=== PATIENT | female | born 1935 | race Caucasian/White ===

== ENCOUNTER 2016-05-20 16:17 | Emergency (ER) | payer MEDICARE, OTHER ==
[2016-05-20] MEDS ORDERED: diphenhydrAMINE 25 MG CAPSULE PO STA (16:43)
[2016-05-20] MEDS ORDERED: CETIRIZINE 10 MG TABLET PO STA (16:43)
[2016-05-20] MEDS ORDERED: DEXAMETHASONE 10 MG/ML VIAL PO STA (16:43)
[2016-05-20] MEDS ORDERED: CETIRIZINE 10 MG TABLET ONE (16:47)
[2016-05-20] MEDS ORDERED: diphenhydrAMINE 25 MG CAPSULE PO ONE ×2 (16:47→16:48)
[2016-05-20] MEDS ORDERED: CHERRY SYRUP 10 ML UDC PO ONE (16:48)
[2016-05-20] MEDS ORDERED: DEXAMETHASONE 10 MG/ML VIAL ONE (16:48)
== END 2016-05-20 17:00 | disposition home or self-care (01) ==
DX: L50.9 Urticaria, unspecified (principal); E78.00 Pure hypercholesterolemia, unspecified; I10 Essential (primary) hypertension; E03.9 Hypothyroidism, unspecified
CPT/HCPCS: 99283; A9270

== ENCOUNTER 2016-08-31 09:43 | Outpatient (CLI) | payer MEDICARE, OTHER | END 2016-08-31 09:44 | disposition home or self-care (01) | DX: D51.0 Vitamin B12 deficiency anemia due to intrinsic factor deficiency (principal); I25.10 Atherosclerotic heart disease of native coronary artery without angina pectoris; E78.2 Mixed hyperlipidemia; E03.9 Hypothyroidism, unspecified; E55.9 Vitamin D deficiency, unspecified; Z79.899 Other long term (current) drug therapy ==

== ENCOUNTER 2016-09-13 15:12 | Outpatient (CLI) | payer MEDICARE, OTHER | END 2016-09-13 15:13 | disposition home or self-care (01) | DX: I63.9 Cerebral infarction, unspecified (principal) ==

== ENCOUNTER 2016-11-16 10:17 | Outpatient (CLI) | payer MEDICARE, OTHER ==
[2016-11-16 11:23] LABS: CALCIUM 9.1 mg/dL (8.5-10.3); POTASSIUM 4.2 mmol/L (3.5-5.0)
== END 2016-11-16 10:18 | disposition home or self-care (01) ==
LOC: LAB 10:17
PROVIDERS: ATTEND Internal Medicine Cardiovascular Disease
DX: I20.9 Angina pectoris, unspecified (principal); R06.09 Other forms of dyspnea
CPT/HCPCS: 36415; 80048

== ENCOUNTER 2017-02-07 09:34 | Outpatient (CLI) | payer MEDICARE, OTHER | END 2017-02-07 09:35 | disposition home or self-care (01) | LOC: LAB 09:34 | PROVIDERS: ATTEND Internal Medicine | DX: D64.9 Anemia, unspecified (principal) | CPT/HCPCS: 36415; 82728 ==

== ENCOUNTER 2017-07-20 09:45 | Outpatient (CLI) | payer MEDICARE, OTHER ==
[2017-07-20 10:20] LABS: ALBUMIN 4.1 g/dL (3.2-5.5); ALBUMIN/GLOBULIN RATIO 1.1 (1.0-2.2); ALKALINE PHOSPHATASE 66 IU/L (42-121); ALT ALANINE AMINOTRANSFERASE 14 IU/L (10-60); AST ASPARTATE AMINOTRANSFERASE 19 IU/L (10-42); BILIRUBIN,TOTAL 0.5 mg/dL (0.2-1.0); BUN - BLOOD UREA NITROGEN 11 mg/dL (6-20); CALCIUM 9.1 mg/dL (8.5-10.3); CARBON DIOXIDE - CO2 22 mmol/L (21-32); CHLORIDE 103 mmol/L (101-111); CHOLESTEROL 143 mg/dL; CREATININE 0.8 mg/dL (0.4-1.0); GFR - MDRD 69 (>89); GLUCOSE 117 mg/dL (70-100); HDL CHOLESTEROL 48 mg/dL; LDL CHOLESTEROL,CALCULATED 55 mg/dL; LDL/HDL RATIO 1.1 (<4.4); SODIUM 135 mmol/L (135-145); TOTAL PROTEIN 7.7 g/dL (6.7-8.2); VLDL CHOLESTEROL 40 mg/dL
== END 2017-07-20 09:46 | disposition home or self-care (01) ==
LOC: LAB 09:45
PROVIDERS: ATTEND Internal Medicine Cardiovascular Disease
DX: I25.119 Atherosclerotic heart disease of native coronary artery with unspecified angina pectoris (principal)
CPT/HCPCS: 36415; 80053; 80061; 83721

== ENCOUNTER 2017-09-10 10:55 | Outpatient (CLI) | payer MEDICARE, OTHER ==
[2017-09-10 12:56] LABS: BASOPHILS % (AUTO) 0.8 %; EOSINOPHILS # (AUTO) 0.2 10^3/uL (0.0-0.7); EOSINOPHILS % (AUTO) 3.2 %; LYMPHOCYTES # (AUTO) 1.6 10^3/uL (1.5-3.5); LYMPHOCYTES % (AUTO) 28.1 %; MEAN CORPUSCULAR HEMOGLOBIN 29.2 pg (27.0-31.0); MEAN CORPUSCULAR HGB CONC 33.3 g/dL (32.0-36.0); MEAN CORPUSCULAR VOLUME 87.6 fL (81.0-99.0); MEAN PLATELET VOLUME 8.8 fL (7.9-10.8); MONOCYTES # (AUTO) 0.5 10^3/uL (0.0-1.0); MONOCYTES % (AUTO) 9.1 %; NEUTROPHILS # (AUTO) 3.4 10^3/uL (1.5-6.6); NEUTROPHILS % (AUTO) 58.8 %; PLT - PLATELET COUNT 274 10^3/uL (130-450); RED BLOOD COUNT 3.76 10^6/uL (4.20-5.40); RED CELL DISTRIBUTION WIDTH 15.6 % (12.0-15.0); WHITE BLOOD COUNT 5.7 x10^3/uL (4.8-10.8)
[2017-09-10 13:10] LABS: ALBUMIN 4.2 g/dL (3.2-5.5); ALBUMIN/GLOBULIN RATIO 1.4 (1.0-2.2); ALKALINE PHOSPHATASE 68 IU/L (42-121); ALT ALANINE AMINOTRANSFERASE 15 IU/L (10-60); AST ASPARTATE AMINOTRANSFERASE 21 IU/L (10-42); BILIRUBIN,TOTAL 0.4 mg/dL (0.2-1.0); BUN - BLOOD UREA NITROGEN 13 mg/dL (6-20); CALCIUM 9.1 mg/dL (8.5-10.3); CARBON DIOXIDE - CO2 25 mmol/L (21-32); CHLORIDE 99 mmol/L (101-111); CHOL/HDL RATIO 3.5 (<4.4); CHOLESTEROL 195 mg/dL; CREATININE 0.8 mg/dL (0.4-1.0); GFR - MDRD 69 (>89); GLUCOSE 101 mg/dL (70-100); HDL CHOLESTEROL 56 mg/dL; LDL CHOLESTEROL,CALCULATED 94 mg/dL; LDL/HDL RATIO 1.7 (<4.4); SODIUM 132 mmol/L (135-145); TOTAL PROTEIN 7.3 g/dL (6.7-8.2); VLDL CHOLESTEROL 45 mg/dL
[2017-09-10 13:23] LABS: THYROID STIMULATING HORMONE 0.39 uIU/mL (0.34-5.60)
== END 2017-09-10 10:56 | disposition home or self-care (01) ==
LOC: LAB.R 10:55
PROVIDERS: ATTEND Internal Medicine
DX: E55.9 Vitamin D deficiency, unspecified (principal); E03.9 Hypothyroidism, unspecified; D51.0 Vitamin B12 deficiency anemia due to intrinsic factor deficiency; I25.10 Atherosclerotic heart disease of native coronary artery without angina pectoris; E78.5 Hyperlipidemia, unspecified; I10 Essential (primary) hypertension
CPT/HCPCS: 80053; 80061; 82306; 82607; 83721; 84443; 85025

== ENCOUNTER 2018-03-28 09:43 | Outpatient (CLI) | payer MEDICARE, OTHER ==
[2018-03-28 10:12] LABS: BASOPHILS # (AUTO) 0.1 10^3/uL (0.0-0.1); EOSINOPHILS # (AUTO) 0.3 10^3/uL (0.0-0.7); EOSINOPHILS % (AUTO) 4.2 %; HGB - HEMOGLOBIN 11.3 g/dL (12.0-16.0); LYMPHOCYTES # (AUTO) 1.9 10^3/uL (1.5-3.5); LYMPHOCYTES % (AUTO) 29.5 %; MEAN CORPUSCULAR HEMOGLOBIN 29.7 pg (27.0-31.0); MEAN CORPUSCULAR HGB CONC 33.9 g/dL (32.0-36.0); MEAN CORPUSCULAR VOLUME 87.8 fL (81.0-99.0); MEAN PLATELET VOLUME 8.3 fL (7.9-10.8); MONOCYTES # (AUTO) 0.8 10^3/uL (0.0-1.0); MONOCYTES % (AUTO) 11.7 %; NEUTROPHILS # (AUTO) 3.5 10^3/uL (1.5-6.6); NEUTROPHILS % (AUTO) 53.6 %; PLT - PLATELET COUNT 264 10^3/uL (130-450); RED BLOOD COUNT 3.78 10^6/uL (4.20-5.40); RED CELL DISTRIBUTION WIDTH 15.3 % (12.0-15.0); WHITE BLOOD COUNT 6.6 x10^3/uL (4.8-10.8)
[2018-03-28 10:43] LABS: CHOLESTEROL 148 mg/dL; HDL CHOLESTEROL 50 mg/dL; LDL CHOLESTEROL,CALCULATED 64 mg/dL; LDL CHOLESTEROL,DIRECT 74 mg/dL; LDL/HDL RATIO 1.3 (<4.4); VLDL CHOLESTEROL 34 mg/dL
--- NOTE | 2018-03-28 11:56 | XRAY Report ---
Reason: HYDROCODONE BITARTRATE Procedure Date: 03/28/2018 Accession Number: [id number] / [id number] Procedure: XR - Chest 2 View X-Ray CPT Code: 18522 FULL RESULT: EXAM: CHEST RADIOGRAPHY EXAM DATE: 03/28/2018 10:35 AM. CLINICAL HISTORY: Hydrocodone bitartrate. Shortness of breath for a few months. COMPARISON: CHEST 2 VIEW PA/LAT 04/05/2016 9:57 AM. TECHNIQUE: 2 views. FINDINGS: Lungs/Pleura: No new focal airspace opacities, no pleural effusion no pneumothorax. Mediastinum: Stable cardiomediastinal silhouette including tortuous calcified aorta and hiatal hernia. Other: Stable chronic elevation of the right hemidiaphragm. IMPRESSION: Stable exam with no evidence of acute airspace disease. RADIA
== END 2018-03-28 09:44 | disposition home or self-care (01) ==
LOC: LAB 09:43 → DI 09:44
PROVIDERS: ATTEND Internal Medicine Cardiovascular Disease
DX: I25.10 Atherosclerotic heart disease of native coronary artery without angina pectoris (principal); R06.09 Other forms of dyspnea
CPT/HCPCS: 36415; 71046; 80061; 83721; 83880; 85025

== ENCOUNTER 2018-05-08 08:00 | Outpatient (CLI) | payer MEDICARE, OTHER ==
[2018-05-08 11:40] LABS: BASOPHILS # (AUTO) 0.1 10^3/uL (0.0-0.1); BASOPHILS % (AUTO) 0.7 %; EOSINOPHILS # (AUTO) 0.1 10^3/uL (0.0-0.7); EOSINOPHILS % (AUTO) 0.6 %; HGB - HEMOGLOBIN 11.6 g/dL (12.0-16.0); LYMPHOCYTES # (AUTO) 1.6 10^3/uL (1.5-3.5); LYMPHOCYTES % (AUTO) 13.1 %; MEAN CORPUSCULAR HEMOGLOBIN 28.7 pg (27.0-31.0); MEAN CORPUSCULAR HGB CONC 33.1 g/dL (32.0-36.0); MEAN CORPUSCULAR VOLUME 86.7 fL (81.0-99.0); MEAN PLATELET VOLUME 9.2 fL (7.9-10.8); MONOCYTES # (AUTO) 0.8 10^3/uL (0.0-1.0); MONOCYTES % (AUTO) 6.5 %; NEUTROPHILS # (AUTO) 9.3 10^3/uL (1.5-6.6); NEUTROPHILS % (AUTO) 79.1 %; PLT - PLATELET COUNT 281 10^3/uL (130-450); RED BLOOD COUNT 4.04 10^6/uL (4.20-5.40); RED CELL DISTRIBUTION WIDTH 14.5 % (12.0-15.0); WHITE BLOOD COUNT 11.8 x10^3/uL (4.8-10.8)
[2018-05-08 12:11] LABS: ALBUMIN/GLOBULIN RATIO 1.1 (1.0-2.2); BILIRUBIN,TOTAL 0.8 mg/dL (0.2-1.0); CALCIUM 8.8 mg/dL (8.5-10.3); CREATININE 0.9 mg/dL (0.4-1.0); CRP - C-REACTIVE PROTEIN 18.1 mg/dL (0-1.0); TOTAL PROTEIN 7.8 g/dL (6.7-8.2)
== END 2018-05-08 23:59 | disposition home or self-care (01) ==
LOC: LAB.R 08:00
PROVIDERS: ATTEND Physician Assistant Medical
DX: R10.84 Generalized abdominal pain (principal)
CPT/HCPCS: 80053; 83690; 85025; 85651; 86140

== ENCOUNTER 2018-05-08 11:52 | Outpatient (CLI) | payer MEDICARE, OTHER ==
[2018-05-08] MEDS ORDERED: IOVERSOL 320 100 ML VIAL IVP ONE ×2 (12:03→16:24)
[2018-05-08] MEDS ORDERED: IOVERSOL 320 50 ML VIAL ONE (12:03)
--- NOTE | 2018-05-08 14:14 | CT Report ---
Reason: ABDOMINAL PAIN,GENERALIZED Procedure Date: 05/08/2018 Accession Number: [id number] / [id number] Procedure: CT - Abdomen/Pelvis W/ CPT Code: FULL RESULT: EXAM: CT ABDOMEN AND PELVIS EXAM DATE: 05/08/2018 01:32 PM. CLINICAL HISTORY: ABDOMINAL PAIN,GENERALIZED. COMPARISONS: None. TECHNIQUE: Routine helical CT imaging was performed through the abdomen and pelvis. IV contrast: OPTI 320 90mL. Enteric contrast: No. Reconstructions: Coronal and sagittal. In accordance with CT protocol optimization, one or more of the following dose reduction techniques were utilized for this exam: automated exposure control, adjustment of mA and/or KV based on patient size, or use of iterative reconstructive technique. FINDINGS: Lung Bases: Unremarkable. Liver: Normal. No masses. Gallbladder/Bile Ducts: Unremarkable. Spleen: Normal. Pancreas: Normal. Adrenal Glands: Normal. Kidneys: Normal. No masses or hydronephrosis. Peritoneal Cavity/Bowel: There is focal fat stranding and wall thickening in the region of a distal sigmoid diverticulum consistent with diverticulitis. There is no associated abscess or gross intraperitoneal free air. The remaining sigmoid colon also demonstrates diverticulosis. Less pronounced diverticulosis was also seen in transverse and ascending colon. No bowel obstruction or lymphadenopathy. No significant free fluid. Pelvic Organs: Excepting the diverticulitis, CT appearance of the pelvis is unremarkable status post hysterectomy except for a suspected bladder diverticulum. Vasculature: Atherosclerosis without aneurysm. Bones: No significant abnormality. Other: None. IMPRESSION: Acute distal sigmoid diverticulitis without mature abscess at this time. RADIA The above findings of diverticulitis were discussed with Demetra zavaleta by Dr. Mohit Mccray at 14:11 hrs on 05/08/18.
[2018-05-08] MEDS ORDERED: IOVERSOL 320 50 ML VIAL PO ONE (16:24)
== END 2018-05-08 11:53 | disposition home or self-care (01) ==
LOC: DI 11:52
PROVIDERS: ATTEND Physician Assistant Medical
DX: K57.32 Diverticulitis of large intestine without perforation or abscess without bleeding (principal); R10.84 Generalized abdominal pain
CPT/HCPCS: 74177; 80053; 83690; 85025; 85651; 86140; Q9967

== ENCOUNTER 2018-05-10 11:03 | Outpatient (CLI) | payer MEDICARE, OTHER ==
[2018-05-10 11:24] LABS: CREATININE 0.9 mg/dL (0.4-1.0)
== END 2018-05-10 11:04 | disposition home or self-care (01) ==
LOC: LAB 11:03
PROVIDERS: ATTEND Physician Assistant Medical
DX: E87.1 Hypo-osmolality and hyponatremia (principal)
CPT/HCPCS: 36415; 80048

== ENCOUNTER 2018-05-16 16:25 | Outpatient (CLI) | payer MEDICARE, OTHER ==
[2018-05-16 18:04] LABS: BASOPHILS # (AUTO) 0.1 10^3/uL (0.0-0.1); EOSINOPHILS # (AUTO) 0.3 10^3/uL (0.0-0.7); EOSINOPHILS % (AUTO) 4.2 %; HGB - HEMOGLOBIN 11.4 g/dL (12.0-16.0); LYMPHOCYTES # (AUTO) 1.6 10^3/uL (1.5-3.5); LYMPHOCYTES % (AUTO) 26.1 %; MEAN CORPUSCULAR HEMOGLOBIN 29.2 pg (27.0-31.0); MEAN CORPUSCULAR HGB CONC 33.4 g/dL (32.0-36.0); MEAN CORPUSCULAR VOLUME 87.5 fL (81.0-99.0); MEAN PLATELET VOLUME 8.3 fL (7.9-10.8); MONOCYTES # (AUTO) 0.8 10^3/uL (0.0-1.0); MONOCYTES % (AUTO) 12.1 %; NEUTROPHILS # (AUTO) 3.5 10^3/uL (1.5-6.6); NEUTROPHILS % (AUTO) 56.6 %; PLT - PLATELET COUNT 368 10^3/uL (130-450); RED BLOOD COUNT 3.91 10^6/uL (4.20-5.40); RED CELL DISTRIBUTION WIDTH 14.9 % (12.0-15.0); WHITE BLOOD COUNT 6.2 x10^3/uL (4.8-10.8)
[2018-05-16 19:49] LABS: ALBUMIN 3.6 g/dL (3.2-5.5); ALBUMIN/GLOBULIN RATIO 1.2 (1.0-2.2); ALKALINE PHOSPHATASE 65 IU/L (42-121); ALT ALANINE AMINOTRANSFERASE 14 IU/L (10-60); AST ASPARTATE AMINOTRANSFERASE 19 IU/L (10-42); BILIRUBIN,TOTAL < 0.2 mg/dL (0.2-1.0); BUN - BLOOD UREA NITROGEN 15 mg/dL (6-20); CALCIUM 8.3 mg/dL (8.5-10.3); CARBON DIOXIDE - CO2 22 mmol/L (21-32); CHLORIDE 100 mmol/L (101-111); CREATININE 0.9 mg/dL (0.4-1.0); GFR - MDRD 60 (>89); GLUCOSE 111 mg/dL (70-100); SODIUM 130 mmol/L (135-145); TOTAL PROTEIN 6.7 g/dL (6.7-8.2)
== END 2018-05-16 23:59 | disposition home or self-care (01) ==
LOC: LAB.R 16:25
PROVIDERS: ATTEND Physician Assistant Medical
DX: K57.92 Diverticulitis of intestine, part unspecified, without perforation or abscess without bleeding (principal); E87.1 Hypo-osmolality and hyponatremia
CPT/HCPCS: 80053; 81599; 85025; 85651; 86140

== ENCOUNTER 2018-07-08 08:58 | Emergency (ER) | payer MEDICARE, OTHER ==
[2018-07-08] MEDS ORDERED: TETANUS/DIPHTHERIA/PERTUSSIS 0.5 ML SYRINGE IM ONE (09:08)
--- NOTE | 2018-07-08 09:17 | ED Physician Documentation ---
PD HPI Fall - Stated complaint Stated Complaint: GLF/HEAD INJURY - History obtained from History obtained from: Patient, Family - History of Present Illness Mechanism of injury: Tripped Fall distance: Other (standing) Where injury occurred: Street Timing - onset: How many minutes ago (20) Injury(ies) location: Head, Face, Right Lower Extremity (knee) Pain level max: 4 Pain level now: 3 Quality of pain: Pain, Aching, Dull Associated symptoms: No: LOC, AMS, Amnesia, Ear drainage, Nasal drainage, Neck pain, Weakness, Paresthesias, Dyspnea, Nausea / vomiting Symptoms improve with: Rest Worsens with: Movement, Palpation Contributing factors: Anticoagulated (plavix) Recently seen: Not recently seen Review of Systems Constitutional: denies: Fever, Chills Nose: denies: Rhinorrhea / runny nose, Congestion Throat: denies: Sore throat Cardiac: denies: Chest pain / pressure, Palpitations Respiratory: denies: Cough GI: denies: Nausea, Vomiting : denies: Dysuria Skin: denies: Rash Musculoskeletal: denies: Neck pain, Back pain Neurologic: denies: Syncope, Confused PD PAST MEDICAL HISTORY - Past Medical History Cardiovascular: Hypertension, High cholesterol, Angina, Other Respiratory: None Endocrine/Autoimmune: HyPOthyroidism GI: GERD, C.difficile : None HEENT: Chronic vision loss, Chronic hearing loss Psych: Depression Musculoskeletal: Other Derm: None - Past Surgical History General: Appendectomy, Colonoscopy Ortho: Other /LAY OUT FORMER: Hysterectomy Cardiovascular: Coronary stent - Present Medications Home Medications: Ambulatory Orders Medication Instructions Recorded Confirmed Atorvastatin Calcium [Lipitor] 40 mg PO HS 09/01/13 07/08/18 Clopidogrel [Plavix] 75 mg PO DAILY 09/01/13 07/08/18 Isosorbide Mononitrate ER [Imdur] 90 mg PO DAILY 09/01/13 07/08/18 Levothyroxine Sodium [Synthroid] 75 mcg PO DAILY 09/01/13 07/08/18 Lisinopril 5 mg PO QPM 09/01/13 07/08/18 Metoprolol Tartrate [Lopressor] 25 mg PO DAILY 09/01/13 07/08/18 Nitroglycerin [Nitrostat] 0.4 mg SL ONCE 09/01/13 07/08/18 amLODIPine [Norvasc] 5 mg PO DAILY 09/01/13 07/08/18 raNITIdine [Zantac] 150 mg PO BID 09/01/13 07/08/18 - Allergies Allergies/Adverse Reactions: Allergies Allergy/AdvReac Type Severity Reaction Status Date / Time acetaminophen [From Vicodin] Allergy Mild Hives Verified 07/08/18 09:17 hydrocodone bitartrate * Allergy Mild Hives Verified 07/08/18 09:17 [From Vicodin] - Social History Does the pt smoke?: No Smoking Status: Never smoker Does the pt drink ETOH?: Yes Does the pt have substance abuse?: No - Immunizations Immunizations are current?: Yes PD ED PE NORMAL - Vitals Vital signs reviewed: Yes - General General: Alert and oriented X 3, No acute distress, Well developed/nourished - HEENT HEENT: PERRL, EOMI, Moist mucous membranes, Other (Abrasion and hematoma to the left frontal area.) - Neck Neck: Supple, no meningeal sign - Cardiac Cardiac: RRR, Strong equal pulses - Respiratory Respiratory: No respiratory distress, Clear bilaterally - Abdomen Abdomen: Soft, Non tender, Non distended - Back Back: No spinal TTP - Derm Derm: Warm and dry - Extremities Extremities: Other (Mild bruising and swelling to the anterior aspect of the right knee. No bony tenderness. Full range of motion.) - Neuro Neuro: Alert and oriented X 3 - Psych Psych: Normal mood, Normal affect Results - Vitals Vitals: Vital Signs - 24 hr 07/08/18 08:58 Temperature 36.9 C Heart Rate 67 Respiratory 16 Rate Blood Pressure 181/82 H O2 Saturation 99 Oxygen O2 Source Room air - Rads (name of study) head Ct Radiology: Prelim report reviewed, EMP read contemporaneously, See rad report (No acute intracranial abnormality) Right knee x-ray Radiology: Prelim report reviewed, EMP read contemporaneously, See rad report (No acute bony abnormality) PD MEDICAL DECISION MAKING - ED course Complexity details: reviewed results, re-evaluated patient, considered differential, d/w patient, d/w family ED course: 83-year-old female presents to the emergency department after a ground-level fall. No acute findings on head CT or x-ray of the knee. Ambulating well. Does have a bruise on the right elbow and left wrist. There is no tenderness associated with these bruises. Full range of motion present of the left wrist and right elbow without pain. Neurovascularly intact. Patient and family counseled regarding signs and symptoms for which I believe and urgent re-ev aluation would be necessary. Patient with good understanding of and agreement to plan and is comfortable going home at this time This document was made in part using voice recognition software. While efforts are made to proofread this document, sound alike and grammatical errors may occur. Departure - Departure Disposition: 01 Home, Self Care Clinical Impression: Head injury Qualifiers: Encounter type: initial encounter Qualified Code(s): S09.90XA - Unspecified injury of head, initial encounter Contusion of knee, right Qualifiers: Encounter type: initial encounter Qualified Code(s): S80.01XA - Contusion of right knee, initial encounter Condition: Good Instructions: ED Head Injury Closed Follow-Up: Isidoro Day MD [Primary Care Provider] - Comments: Your head CT and x-rays do not show anything acute today. Return if you worsen. You can use Motrin or Tylenol as needed for pain.
--- NOTE | 2018-07-08 09:34 | CT Report ---
Reason: fall, head injury, pt takes plavix Procedure Date: 07/08/2018 Accession Number: [id number] / [id number] Procedure: CT - HEAD WO CPT Code: FULL RESULT: EXAM: CT HEAD EXAM DATE: 07/08/2018 09:24 AM. CLINICAL HISTORY: Fall, head injury, pt takes plavix. COMPARISON: None. TECHNIQUE: Multiaxial CT images were obtained from the foramen magnum to the vertex. Reformats: Sagittal and coronal. IV contrast: None. In accordance with CT protocol optimization, one or more of the following dose reduction techniques were utilized for this exam: automated exposure control, adjustment of mA and/or KV based on patient size, or use of iterative reconstructive technique. FINDINGS: Parenchyma: No intraparenchymal hemorrhage. No evidence of mass, midline shift, or CT findings of acute infarction. Jeffers-white differentiation is distinct. Diffuse chronic microangiopathic white matter changes are evident. Extraaxial Spaces: Normal for age. No subdural or epidural collections identified. Ventricles: The ventricles and cortical sulci are enlarged, consistent with age-related tissue loss. Sinuses and orbits: Occluded left mastoid tip Imaged paranasal sinuses, orbits, and mastoids show no significant abnormality. Bones: No evidence of fracture or calvarial defect. Other: None. IMPRESSION: Generalized age-related cortical atrophic changes without evidence of acute intracranial abnormality. RADIA
[2018-07-08] MEDS ORDERED: ACETAMINOPHEN 325 MG TABLET PO STA (09:55)
--- NOTE | 2018-07-08 10:04 | XRAY Report ---
Reason: fall, R knee injury Procedure Date: 07/08/2018 Accession Number: [id number] / [id number] Procedure: XR - Knee 4 View RT CPT Code: FULL RESULT: EXAM: RIGHT KNEE RADIOGRAPHY EXAM DATE: 07/08/2018 09:33 AM. CLINICAL HISTORY: Fall, R knee injury. COMPARISON: KNEE 3 VIEW RT 05/05/2015 9:59 AM. TECHNIQUE: 4 views. FINDINGS: Bones: Medial joint space osteophyte, subchondral sclerosis mild joint space narrowing. Spurring of the tibial spines. Joints: Normal. No effusion. No subluxations. Soft Tissues: Soft tissue swelling. Vascular calcifications IMPRESSION: Mild to moderate DJD RADIA
[2018-07-08] MEDS ORDERED: BACITRACIN OINT TOP ONE (10:25)
--- NOTE | 2018-07-08 10:59 | XRAY Report ---
Reason: fall, wrist pain Procedure Date: 07/08/2018 Accession Number: [id number] / [id number] Procedure: XR - Wrist 4 View LT CPT Code: FULL RESULT: EXAM: LEFT WRIST RADIOGRAPHY EXAM DATE: 07/08/2018 10:49 AM. CLINICAL HISTORY: Fall, wrist pain. COMPARISON: None. TECHNIQUE: 4 views. FINDINGS: Bones: Osteopenia. Possible dorsal distal radial fracture Joints: DJD first metacarpal carpal joint No subluxations. Soft Tissues: Clothing artifact No soft tissue swelling. IMPRESSION: Possible dorsal distal radial buckle fracture RADIA
[2018-07-08] MEDS ORDERED: traMADol 50 MG TABLET PO STA (11:24)
--- NOTE | 2018-07-08 11:27 | ED Physician Documentation ---
ED Addendum - Addendum Addendum: Patient complained of increased L wrist pain, xray ordered. Possible distal radius buckle fracture, not really tender at this area, doubt that it is real, but will place in a velcro splint. NVI. Patient and family also request tramadol for home Departure - Departure Disposition: 01 Home, Self Care Clinical Impression: Head injury Qualifiers: Encounter type: initial encounter Qualified Code(s): S09.90XA - Unspecified injury of head, initial encounter Contusion of knee, right Qualifiers: Encounter type: initial encounter Qualified Code(s): S80.01XA - Contusion of right knee, initial encounter Buckle fracture of left wrist Qualifiers: Encounter type: initial encounter Qualified Code(s): S62.102A - Fracture of unspecified carpal bone, left wrist, initial encounter for closed fracture Condition: Good Instructions: ED Head Injury Closed Follow-Up: Isidoro Day MD [Primary Care Provider] - Within 1 week Prescriptions: Tramadol HCl 50 - 100 mg PO Q6H PRN #14 tablet PRN Reason: pain Comments: Your head CT and x-rays do not show anything acute today other than a possible buckle fracture of the dorsal distal radius. Wear the splint until released by her doctor. Return if you worsen. You can use Motrin or Tylenol as needed for pain.
[2018-07-08 11:39] VITALS: BP 142/63
== END 2018-07-08 11:40 | disposition home or self-care (01) ==
LOC: ED 08:58
DX: S52.592A Other fractures of lower end of left radius, initial encounter for closed fracture (principal); S09.90XA Unspecified injury of head, initial encounter; S00.81XA Abrasion of other part of head, initial encounter; S00.83XA Contusion of other part of head, initial encounter; S80.01XA Contusion of right knee, initial encounter; S50.01XA Contusion of right elbow, initial encounter; S60.212A Contusion of left wrist, initial encounter; W01.0XXA Fall on same level from slipping, tripping and stumbling without subsequent striking against object, initial encounter; Y92.410 Unspecified street and highway as the place of occurrence of the external cause; Z23 Encounter for immunization; I10 Essential (primary) hypertension; Z79.02 Long term (current) use of antithrombotics/antiplatelets
CPT/HCPCS: 70450; 73110; 73564; 90471; 90715; 99283; A9270

== ENCOUNTER 2018-12-04 10:21 | Outpatient (CLI) | payer MEDICARE, OTHER ==
[2018-12-04 10:46] LABS: BASOPHILS # (AUTO) 0.1 10^3/uL (0.0-0.1); BASOPHILS % (AUTO) 0.8 %; EOSINOPHILS # (AUTO) 0.3 10^3/uL (0.0-0.7); EOSINOPHILS % (AUTO) 4.2 %; HGB - HEMOGLOBIN 11.3 g/dL (12.0-16.0); LYMPHOCYTES # (AUTO) 1.6 10^3/uL (1.5-3.5); LYMPHOCYTES % (AUTO) 25.2 %; MEAN CORPUSCULAR HEMOGLOBIN 28.5 pg (27.0-31.0); MEAN CORPUSCULAR HGB CONC 30.4 g/dL (32.0-36.0); MEAN CORPUSCULAR VOLUME 93.9 fL (81.0-99.0); MEAN PLATELET VOLUME 10.3 fL (7.9-10.8); MONOCYTES # (AUTO) 0.7 10^3/uL (0.0-1.0); NEUTROPHILS # (AUTO) 3.5 10^3/uL (1.5-6.6); NEUTROPHILS % (AUTO) 57.6 %; PLT - PLATELET COUNT 263 10^3/uL (130-450); RED BLOOD COUNT 3.96 10^6/uL (4.20-5.40); RED CELL DISTRIBUTION WIDTH 13.7 % (12.0-15.0); WHITE BLOOD COUNT 6.2 x10^3/uL (4.8-10.8)
[2018-12-04 11:03] LABS: ALBUMIN 4.1 g/dL (3.2-5.5); ALBUMIN/GLOBULIN RATIO 1.2 (1.0-2.2); ALKALINE PHOSPHATASE 73 IU/L (42-121); ALT ALANINE AMINOTRANSFERASE 14 IU/L (10-60); AST ASPARTATE AMINOTRANSFERASE 19 IU/L (10-42); BILIRUBIN,TOTAL 0.7 mg/dL (0.2-1.0); BUN - BLOOD UREA NITROGEN 17 mg/dL (6-20); CALCIUM 9.1 mg/dL (8.5-10.3); CARBON DIOXIDE - CO2 23 mmol/L (21-32); CHLORIDE 99 mmol/L (101-111); CHOL/HDL RATIO 3.6 (<4.4); CHOLESTEROL 171 mg/dL; CREATININE 0.9 mg/dL (0.4-1.0); GFR - MDRD 60 (>89); GLUCOSE 120 mg/dL (70-100); HDL CHOLESTEROL 48 mg/dL; LDL CHOLESTEROL,CALCULATED 79 mg/dL; LDL/HDL RATIO 1.6 (<4.4); SODIUM 132 mmol/L (135-145); TOTAL PROTEIN 7.5 g/dL (6.7-8.2); VLDL CHOLESTEROL 44 mg/dL
[2018-12-04 11:35] LABS: THYROID STIMULATING HORMONE 0.32 uIU/mL (0.34-5.60)
[2018-12-04 11:37] LABS: FREE T4 (FREE THYROXINE) 1.19 ng/dL (0.58-1.64)
== END 2018-12-04 10:22 | disposition home or self-care (01) ==
LOC: LAB 10:21
PROVIDERS: ATTEND Family Medicine
DX: I10 Essential (primary) hypertension (principal); I25.119 Atherosclerotic heart disease of native coronary artery with unspecified angina pectoris; E03.9 Hypothyroidism, unspecified; D51.0 Vitamin B12 deficiency anemia due to intrinsic factor deficiency
CPT/HCPCS: 36415; 80053; 80061; 83721; 84439; 84443; 84481; 85025

== ENCOUNTER 2018-12-30 08:58 | Outpatient (CLI) | payer MEDICARE, OTHER ==
[2018-12-30] MEDS ORDERED: ALBUTEROL NEB 2.5 MG/3 ML INH SCH (09:01)
== END 2018-12-30 08:59 | disposition home or self-care (01) ==
LOC: RT 08:58
PROVIDERS: ATTEND Family Medicine
DX: I25.119 Atherosclerotic heart disease of native coronary artery with unspecified angina pectoris (principal); J44.9 Chronic obstructive pulmonary disease, unspecified
CPT/HCPCS: 94060

== ENCOUNTER 2019-05-22 09:32 | Outpatient (CLI) | payer MEDICARE, OTHER ==
--- NOTE | 2019-05-22 12:01 | MRI Report ---
Reason: MASTOIDITIS AND RELATED CONDITIONS LT EAR, NECK PX Procedure Date: 05/22/2019 Accession Number: [id number] / [id number] Procedure: MRI - Brain W/O CPT Code: Final Report FULL RESULT: EXAM: MRI BRAIN WITHOUT CONTRAST EXAM DATE: 05/22/2019 11:05 AM. CLINICAL HISTORY: MASTOIDITIS AND RELATED CONDITIONS LT EAR, NECK PX. COMPARISON: HEAD W/O 07/08/2018 9:20 AM. TECHNIQUE: Multiplanar, multisequence T1-weighted and fluid-sensitive MR sequences of the brain were performed. Sequences optimized for routine brain and IAC evaluation. Other: None. IV Contrast: None. FINDINGS: Brain Volume: Normal for age. Parenchyma/Dura: No mass, acute infarct or hemorrhage. There is semi-confluent areas of increased T2 signal involving the white matter of bilateral cerebral hemispheres. Ventricles/Cisterns: No hydrocephalus. No abnormal extra-axial fluid collection or hemorrhage. Orbits: Symmetric and unremarkable. Sella Turcica: The pituitary gland, cavernous sinuses, suprasellar cistern and optic chiasm are unremarkable. IAC: Symmetric and unremarkable. Vasculature: Normal signal flow void is seen in the major arterial structures at the skull base. Sinuses: Paranasal sinuses well aerated. Incidental opacification of several left inferior mastoid air cells. Bones: No focal pathologic appearing marrow signal changes. Other: None. IMPRESSION: 1. No acute intracranial process. 2. Moderate microvascular white matter disease. 3. Small volume chronic fluid in left inferior mastoid air cells. RADIA
== END 2019-05-22 09:33 | disposition home or self-care (01) ==
LOC: DI 09:32
PROVIDERS: ATTEND Family Medicine
DX: H70.892 Other mastoiditis and related conditions, left ear (principal); R90.82 White matter disease, unspecified; M54.2 Cervicalgia; H91.90 Unspecified hearing loss, unspecified ear
CPT/HCPCS: 70551

== ENCOUNTER 2019-10-16 10:15 | Outpatient (CLI) | payer MEDICARE, OTHER ==
[2019-10-16 11:48] LABS: BASOPHILS # (AUTO) 0.1 10^3/uL (0.0-0.1); EOSINOPHILS # (AUTO) 0.2 10^3/uL (0.0-0.7); HGB - HEMOGLOBIN 10.9 g/dL (12.0-16.0); LYMPHOCYTES # (AUTO) 1.5 10^3/uL (1.5-3.5); LYMPHOCYTES % (AUTO) 19.1 %; MEAN CORPUSCULAR HEMOGLOBIN 26.7 pg (27.0-31.0); MEAN CORPUSCULAR HGB CONC 30.7 g/dL (32.0-36.0); MEAN CORPUSCULAR VOLUME 86.8 fL (81.0-99.0); MEAN PLATELET VOLUME 10.5 fL (7.9-10.8); MONOCYTES # (AUTO) 0.6 10^3/uL (0.0-1.0); MONOCYTES % (AUTO) 7.3 %; NEUTROPHILS # (AUTO) 5.5 10^3/uL (1.5-6.6); NEUTROPHILS % (AUTO) 70.3 %; PLT - PLATELET COUNT 302 10^3/uL (130-450); RED BLOOD COUNT 4.09 10^6/uL (4.20-5.40); RED CELL DISTRIBUTION WIDTH 18.4 % (12.0-15.0); WHITE BLOOD COUNT 7.8 x10^3/uL (4.8-10.8)
[2019-10-16 12:14] LABS: HB2 TOTAL 9.9 g/dL; HEMOGLOBIN A1C 0.45 g/dL; HEMOGLOBIN A1C % 6.3 % (4.6-6.2)
[2019-10-16 12:25] LABS: ALBUMIN 4.6 g/dL (3.2-5.5); ALBUMIN/GLOBULIN RATIO 1.5 (1.0-2.2); ALKALINE PHOSPHATASE 47 IU/L (42-121); ALT ALANINE AMINOTRANSFERASE 18 IU/L (10-60); AST ASPARTATE AMINOTRANSFERASE 23 IU/L (10-42); BILIRUBIN,TOTAL 0.6 mg/dL (0.2-1.0); BUN - BLOOD UREA NITROGEN 20 mg/dL (6-20); CALCIUM 9.1 mg/dL (8.5-10.3); CARBON DIOXIDE - CO2 24 mmol/L (21-32); CHLORIDE 99 mmol/L (101-111); CHOL/HDL RATIO 2.8 (<4.4); CHOLESTEROL 166 mg/dL; CREATININE 0.9 mg/dL (0.4-1.0); GLUCOSE 122 mg/dL (70-100); HDL CHOLESTEROL 60 mg/dL; LDL CHOLESTEROL,CALCULATED 69 mg/dL; LDL/HDL RATIO 1.2 (<4.4); SODIUM 131 mmol/L (135-145); TOTAL PROTEIN 7.6 g/dL (6.7-8.2); VLDL CHOLESTEROL 37 mg/dL
== END 2019-10-16 23:59 | disposition home or self-care (01) ==
LOC: LAB.WCP 10:15
PROVIDERS: ATTEND Family Medicine
DX: D51.0 Vitamin B12 deficiency anemia due to intrinsic factor deficiency (principal); G25.81 Restless legs syndrome; G47.00 Insomnia, unspecified; E03.9 Hypothyroidism, unspecified; E78.5 Hyperlipidemia, unspecified; D64.9 Anemia, unspecified; I25.119 Atherosclerotic heart disease of native coronary artery with unspecified angina pectoris; I10 Essential (primary) hypertension
CPT/HCPCS: 36415; 80053; 80061; 83036; 83721; 84443; 85025

== ENCOUNTER 2020-03-31 08:00 | Outpatient (CLI) | payer MEDICARE, OTHER ==
[2020-03-31 13:29] LABS: CALCIUM 9.1 mg/dL (8.5-10.3); CREATININE 0.9 mg/dL (0.4-1.0)
== END 2020-03-31 23:59 | disposition home or self-care (01) ==
LOC: LAB.WCP 08:00
PROVIDERS: ATTEND Family Medicine
DX: E87.1 Hypo-osmolality and hyponatremia (principal); F33.2 Major depressive disorder, recurrent severe without psychotic features; E03.9 Hypothyroidism, unspecified; I10 Essential (primary) hypertension
CPT/HCPCS: 36415; 80048; 84443

== ENCOUNTER 2020-08-05 21:05 | Emergency (ER) | payer MEDICARE, OTHER ==
--- OUTSIDE RECORDS SUMMARY | 2020-08-05 21:17 | EXTERNAL MEDICAL SUMMARY RPT | Continuity of Care Document ---
:1935 Demographics Phone Unavailable Preferred Language Unknown Marital Status Unknown Confucianist Affiliation Unknown Race Unknown Ethnic Group Unknown Author Organization [facility] Address [address] [id number] Phone Social History date description facility [id number]
[2020-08-05 21:27] LABS: BASOPHILS # (AUTO) 0.1 10^3/uL (0.0-0.1); BASOPHILS % (AUTO) 0.9 %; EOSINOPHILS # (AUTO) 0.4 10^3/uL (0.0-0.7); EOSINOPHILS % (AUTO) 4.4 %; HCT - HEMATOCRIT 41.8 % (37.0-47.0); HGB - HEMOGLOBIN 12.7 g/dL (12.0-16.0); LYMPHOCYTES % (AUTO) 37.5 %; MEAN CORPUSCULAR HEMOGLOBIN 28.5 pg (27.0-31.0); MEAN CORPUSCULAR HGB CONC 30.4 g/dL (32.0-36.0); MEAN CORPUSCULAR VOLUME 93.9 fL (81.0-99.0); MEAN PLATELET VOLUME 10.3 fL (7.9-10.8); MONOCYTES # (AUTO) 0.9 10^3/uL (0.0-1.0); MONOCYTES % (AUTO) 11.2 %; NEUTROPHILS # (AUTO) 3.7 10^3/uL (1.5-6.6); NEUTROPHILS % (AUTO) 45.8 %; PLT - PLATELET COUNT 323 10^3/uL (130-450); RED BLOOD COUNT 4.45 10^6/uL (4.20-5.40); RED CELL DISTRIBUTION WIDTH 14.6 % (12.0-15.0)
[2020-08-05 21:41] LABS: ALBUMIN 4.2 g/dL (3.2-5.5); ALBUMIN/GLOBULIN RATIO 1.2 (1.0-2.2); BILIRUBIN,TOTAL 0.5 mg/dL (0.2-1.0); CALCIUM 9.3 mg/dL (8.5-10.3); CREATININE 0.9 mg/dL (0.4-1.0); POTASSIUM 3.7 mmol/L (3.5-5.0); TOTAL PROTEIN 7.7 g/dL (6.7-8.2)
[2020-08-05] MEDS ORDERED: diltiaZEM INJ 5 MG/ML VIAL IVP STA (21:54)
--- NOTE | 2020-08-05 21:59 | XRAY Report ---
PROCEDURE: Chest 1 View X-Ray INDICATIONS: Chest Pain TECHNIQUE: One view of the chest was acquired. COMPARISON: 03/28/2018. FINDINGS: Surgical changes and devices: None. Lungs and pleura: Evaluation limited by lordotic projection. There are low lung volumes. Mild pulmon philip vascular prominence may reflect mild edema or vascular crowding. No pleural effusions or pneumoth orax. Mediastinum: There is a large hiatal hernia redemonstrated. Heart size is normal given technique. Bones and chest wall: No suspicious bony lesions. Overlying soft tissues appear unremarkable. IMPRESSION: 1. Large hiatal hernia. 2. Low lung volumes with pulmonary vascular prominence which may reflect mild edema or vascular crowd ing. Reviewed by: Kp Villalba MD on 08/05/2020 9:58 PM PDT Approved by: Kp Villalba MD on 08/05/2020 9:58 PM PDT Station ID: [id number]
[2020-08-05 23:38] VITALS: BP 128/82
--- NOTE | 2020-08-05 23:38 | ED Physician Documentation ---
History of Present Illness - Stated complaint Stated Complaint: CHEST PRESSURE - Chief complaint Chief Complaint: Cardiac - History obtained from History obtained from: Patient - Additonal information Additional information: Patient comes emergency department chief complaint of chest pressure and palpitations. She states she has had palpitations on and off, but most recently, she started to notice them about 2-1/2 days ago. She Also at that time noticed a sensation of pressure in her chest, and this is common gone since. Patient also states her blood pressure has been running running higher than usual over the same amount of time but she is not sure why. Patient is on amlodipine and metoprolol for her blood pressure. She states that she had been on Double the dose of metoprolol ER at 50 mg, but it was causing her feet to swell, so her hardboard supervisor Cut her dose in half and this made the swelling go away. She is still currently on metoprolol ER 25 mg. No other medication changes. No known history of atrial fibrillation or other rhythm disorder. She states that after she experienced palpitations several weeks ago, she wore a Holter monitor but nobody could ever find anything abnormal about her rhythm. No recent illness. No shortness of breath or nausea. No radiation of the pressure. No actual pain. No other complaints at this time Review of Systems Ten Systems: 10 systems reviewed and negative Constitutional: reports: Reviewed and negative Eyes: reports: Reviewed and negative Ears: reports: Reviewed and negative Nose: reports: Reviewed and negative Throat: reports: Reviewed and negative Cardiac: reports: Chest pain / pressure, Palpitations. denies: Pedal edema Respiratory: reports: Reviewed and negative. denies: Dyspnea GI: reports: Reviewed and negative. denies: Nausea : reports: Reviewed and negative Skin: reports: Reviewed and negative Musculoskeletal: reports: Reviewed and negative Neurologic: reports: Reviewed and negative Psychiatric: reports: Reviewed and negative Endocrine: reports: Reviewed and negative Immunocompromised: reports: Reviewed and negative PD PAST MEDICAL HISTORY - Past Medical History Past Medical History: Yes Cardiovascular: Hypertension, High cholesterol, Angina, Other Respiratory: None Endocrine/Autoimmune: HyPOthyroidism GI: GERD, C.difficile : None HEENT: Chronic vision loss, Chronic hearing loss Psych: Depression Musculoskeletal: Other Derm: None - Past Surgical History Past Surgical History: Yes General: Appendectomy, Colonoscopy Ortho: Other /RN CHEMICAL DEPENDENCY: Hysterectomy Cardiovascular: Coronary stent - Present Medications Home Medications: Ambulatory Orders Medication Instructions Recorded Confirmed Atorvastatin Calcium [Lipitor] 40 mg PO HS 09/01/13 08/05/20 Clopidogrel [Plavix] 75 mg PO DAILY 09/01/13 08/05/20 Isosorbide Mononitrate ER [Imdur] 90 mg PO DAILY 09/01/13 08/05/20 Levothyroxine Sodium [Synthroid] 75 mcg PO DAILY 09/01/13 08/05/20 Metoprolol Tartrate [Lopressor] 25 mg PO DAILY 09/01/13 08/05/20 Nitroglycerin [Nitrostat] 0.4 mg SL ONCE 09/01/13 08/05/20 amLODIPine [Norvasc] 5 mg PO DAILY 09/01/13 08/05/20 lisinopriL [Lisinopril] 5 mg PO QPM 09/01/13 08/05/20 Omeprazole 20 mg PO DAILY 08/05/20 08/05/20 Zolpidem [Ambien] 5 mg PO DAILY 08/05/20 08/05/20 amLODIPine [Norvasc] 10 mg PO DAILY #30 tablet 08/05/20 - Allergies Allergies/Adverse Reactions: Allergies Allergy/AdvReac Type Severity Reaction Status Date / Time acetaminophen [From Vicodin] Allergy Mild Hives Verified 08/05/20 21:16 hydrocodone bitartrate * Allergy Mild Hives Verified 08/05/20 21:16 [From Vicodin] - Social History Does the pt smoke?: No Smoking Status: Never smoker Does the pt drink ETOH?: Yes Does the pt have substance abuse?: No - Immunizations Immunizations are current?: Yes PD ED PE NORMAL - Vitals Vital signs reviewed: Yes - General General: Alert and oriented X 3, No acute distress, Well developed/nourished - HEENT HEENT: Atraumatic, PERRL, EOMI, Moist mucous membranes - Neck Neck: Supple, no meningeal sign - Cardiac Cardiac: No murmur, Strong equal pulses, Other (Tachycardic rate, irregular rhythm) - Respiratory Respiratory: No respiratory distress, Clear bilaterally - Abdomen Abdomen: Soft, Non tender, Non distended - Derm Derm: Normal color, Warm and dry, No rash - Extremities Extremities: No deformity, No edema, No calf tenderness / cord - Neuro Neuro: Alert and oriented X 3, director of home health services 2-12 intact, No motor deficit, No sensory deficit, Normal speech - Psych Psych: Normal mood, Normal affect Results - Vitals Vitals: Vital Signs - 24 hr 08/05/20 08/05/20 08/05/20 21:16 21:23 21:53 Temperature 36.6 C 36.6 C 36.6 C Heart Rate 96 98 120 H Respiratory 16 16 16 Rate Blood Pressure 165/96 H 160/98 H 160/98 H O2 Saturation 96 96 98 08/05/20 08/05/20 08/05/20 22:04 22:10 22:11 Temperature 36.6 C 36.6 C 36.6 C Heart Rate 117 H 69 71 Respiratory 20 18 18 Rate Blood Pressure 156/87 H 97/55 L 125/51 L O2 Saturation 96 96 95 08/05/20 23:30 Temperature 36.6 C Heart Rate 108 H Respiratory 18 Rate Blood Pressure 128/82 H O2 Saturation 99 Oxygen O2 Source Room air - EKG (time done) 2111 Rate: Rate (enter#) (107) Rhythm: Atrial fibrillation [place]: Normal QRS: Normal Ischemia: Normal ST segments. No: T wave inversion Compare to prior EKG: Old EKG unavailable Computer interpretation: Disagree with computer (do not agree with "global ischemia") - Labs Labs: Laboratory Tests 08/05/20 08/05/20 08/05/20 21:18 21:18 21:18 WBC 8.0 RBC 4.45 Hgb 12.7 Hct 41.8 MCV 93.9 MCH 28.5 MCHC 30.4 L RDW 14.6 Plt Count 323 MPV 10.3 Neut # (Auto) 3.7 Lymph # (Auto) 3.0 [place] # (Auto) 0.9 Eos # (Auto) 0.4 Baso # (Auto) 0.1 Absolute Nucleated RBC 0.00 Nucleated RBC % 0.0 Sodium 137 Potassium 3.7 Chloride 104 Carbon Dioxide 24 Anion Gap 9.0 BUN 22 H Creatinine 0.9 Estimated GFR (MDRD) 59 L Glucose 130 H Calcium 9.3 Total Bilirubin 0.5 AST 20 ALT 17 Alkaline Phosphatase 75 Troponin I High Sens 27.7 H* Total Protein 7.7 Albumin 4.2 Globulin 3.5 Albumin/Globulin Ratio 1.2 Lipase 29 Urine Color Urine Clarity Urine pH Ur Specific [place] Urine Protein Urine Glucose (UA) Urine Ketones Urine Occult Blood Urine Nitrite Urine Bilirubin Urine Urobilinogen Ur Leukocyte Esterase Urine RBC Urine WBC Ur Squamous Epith Cells Urine Bacteria Ur Microscopic Review Urine Culture Comments 08/05/20 08/05/20 22:59 23:15 WBC RBC Hgb Hct MCV MCH MCHC RDW Plt Count MPV Neut # (Auto) Lymph # (Auto) [place] # (Auto) Eos # (Auto) Baso # (Auto) Absolute Nucleated RBC Nucleated RBC % Sodium Potassium Chloride Carbon Dioxide Anion Gap BUN Creatinine Estimated GFR (MDRD) Glucose Calcium Total Bilirubin AST ALT Alkaline Phosphatase Troponin I High Sens 26.3 H* Total Protein Albumin Globulin Albumin/Globulin Ratio Lipase Urine Color YELLOW Urine Clarity CLEAR Urine pH 6.0 Ur Specific [place] 1.015 Urine Protein NEGATIVE Urine Glucose (UA) NEGATIVE Urine Ketones NEGATIVE Urine Occult Blood NEGATIVE Urine Nitrite NEGATIVE Urine Bilirubin NEGATIVE Urine Urobilinogen 0.2 (NORMAL) Ur Leukocyte Esterase TRACE H Urine RBC None Seen Urine WBC 4-5 Ur Squamous Epith Cells MOD Squamous H Urine Bacteria Rare Ur Microscopic Review INDICATED Urine Culture Comments NOT INDICATED - Rads (name of study) cxr Radiology: Final report received, EMP read indepedently, See rad report (large hiatal hernia; NAD) PD MEDICAL DECISION MAKING - ED course Complexity details: reviewed old records, reviewed results, re-evaluated patient, considered differential, d/w patient ED course: The patient was well-appearing overall, and was treated with IV fluids, as well as 25 mg of diltiazem IV. Patient responded very well to the diltiazem with normalization of heart rate, though she remained in A. fib. Labs and EKG were u nremarkable other than the A. fib and a mildly elevated troponin which was stable on second draw 2 hours later. She stated she preferred not to go up on her metoprolol again because the foot swelling, so I will Increase her amlodipine. I have advised the patient to follow-up with her primary care physician and hardboard supervisor as soon as possible to discuss what they prefer for long-term plan for control of the patient's A. fib and rate. We have discussed the usual indications for return. Departure - Departure Disposition: 01 Home, Self Care Clinical Impression: Atrial fibrillation with RVR Condition: Stable Instructions: ED Afib Prescriptions: amLODIPine [Norvasc] 10 mg PO DAILY #30 tablet Comments: Your labs do not show any evidence of a heart attack today, nor does your EKG. You responded very well to the medicine we gave you here in the emergency department, and your heart rate has normalized. You are already on a medication that is in the same class, which is your amlodipine. Since the medication we gave you worked so well, we will go ahead and double your amlodipine dose from 5 to 10 mg once daily. You have been given a new prescription for this so that you do not run out of your medication early. Please call to make an appointment as soon as possible a follow up with your primary care doctor and hardboard supervisor. Discharge Date/Time: 08/06/20 00:00
[2020-08-05 23:58] LABS: BILIRUBIN,URINE NEGATIVE (NEGATIVE); GLUCOSE, URINE (UA) NEGATIVE (NEGATIVE); KETONES,URINE (UA) NEGATIVE (NEGATIVE); LEUKOCYTE ESTERASE, URINE TRACE (NEGATIVE); NITRITE,URINE NEGATIVE (NEGATIVE); OCCULT BLOOD,URINE NEGATIVE (NEGATIVE); PROTEIN,URINE NEGATIVE (NEGATIVE); UROBILINOGEN,URINE 0.2 (NORMAL) E.U./dL (NORMAL)
[2020-08-05 23:59] LABS: CLARITY,URINE CLEAR (CLEAR)
[2020-08-06 00:05] LABS: BACTERIA,URINE Rare /HPF (None Seen); RBC,URINE None Seen /HPF (0-5); SQUAMOUS EPITHELIAL CELL,UR MOD Squamous (<= Few)
== END 2020-08-06 | disposition home or self-care (01) ==
LOC: ED 21:05
DX: I48.20 Chronic atrial fibrillation, unspecified (principal); I10 Essential (primary) hypertension
CPT/HCPCS: 36415; 80053; 81001; 81003; 83690; 84484; 85025; 87086; 93005; 96374; 99284

== ENCOUNTER 2020-09-01 08:00 | Outpatient (CLI) | payer MEDICARE, OTHER ==
[2020-09-01 18:17] LABS: CALCIUM 8.9 mg/dL (8.5-10.3); CREATININE 1.3 mg/dL (0.4-1.0); POTASSIUM 4.3 mmol/L (3.5-5.0)
[2020-09-01 18:39] LABS: THYROID STIMULATING HORMONE 6.58 uIU/mL (0.34-5.60)
[2020-09-01 18:41] LABS: FREE T4 (FREE THYROXINE) 0.94 ng/dL (0.58-1.64)
== END 2020-09-01 23:59 | disposition home or self-care (01) ==
LOC: LAB.WCP 08:00
PROVIDERS: ATTEND Internal Medicine Cardiovascular Disease
DX: I48.19 Other persistent atrial fibrillation (principal); I10 Essential (primary) hypertension
CPT/HCPCS: 36415; 80048; 84439; 84443

== ENCOUNTER 2020-12-22 08:00 | Outpatient (CLI) | payer MEDICARE, OTHER ==
[2020-12-22 17:50] LABS: ABSOLUTE RETICS # AUTO 0.057 10^6/uL (0.020-0.110); BASOPHILS # (AUTO) 0.1 10^3/uL (0.0-0.1); BASOPHILS % (AUTO) 0.9 %; EOSINOPHILS # (AUTO) 0.1 10^3/uL (0.0-0.7); EOSINOPHILS % (AUTO) 2.1 %; HCT - HEMATOCRIT 32.9 % (37.0-47.0); HGB - HEMOGLOBIN 10.1 g/dL (12.0-16.0); LYMPHOCYTES # (AUTO) 2.1 10^3/uL (1.5-3.5); LYMPHOCYTES % (AUTO) 30.6 %; MEAN CORPUSCULAR HEMOGLOBIN 27.4 pg (27.0-31.0); MEAN CORPUSCULAR HGB CONC 30.7 g/dL (32.0-36.0); MEAN CORPUSCULAR VOLUME 89.4 fL (81.0-99.0); MEAN PLATELET VOLUME 10.2 fL (7.9-10.8); MONOCYTES # (AUTO) 0.7 10^3/uL (0.0-1.0); MONOCYTES % (AUTO) 10.7 %; NEUTROPHILS # (AUTO) 3.7 10^3/uL (1.5-6.6); NEUTROPHILS % (AUTO) 55.7 %; PLT - PLATELET COUNT 302 10^3/uL (130-450); RED BLOOD COUNT 3.68 10^6/uL (4.20-5.40); RED CELL DISTRIBUTION WIDTH 15.7 % (12.0-15.0); RETICULOCYTE COUNT % (AUTO) 1.55 % (0.5-2.3); WHITE BLOOD COUNT 6.7 x10^3/uL (4.8-10.8)
[2020-12-22 18:17] LABS: CALCIUM 9.1 mg/dL (8.5-10.3); POTASSIUM 4.3 mmol/L (3.5-5.0)
[2020-12-22 18:18] LABS: THYROID STIMULATING HORMONE 2.72 uIU/mL (0.34-5.60)
[2020-12-22 18:20] LABS: FREE T4 (FREE THYROXINE) 1.12 ng/dL (0.58-1.64)
[2020-12-22 18:23] LABS: FREE T3 2.79 pg/mL (2.5-3.9)
[2020-12-22 18:26] LABS: FERRITIN 12.2 ng/mL (11.0-306.8)
== END 2020-12-22 23:59 | disposition home or self-care (01) ==
LOC: LAB.WCP 08:00
PROVIDERS: ATTEND Family Medicine
DX: R04.0 Epistaxis (principal); I48.91 Unspecified atrial fibrillation; D51.0 Vitamin B12 deficiency anemia due to intrinsic factor deficiency; E03.9 Hypothyroidism, unspecified; I10 Essential (primary) hypertension; K21.00 Gastro-esophageal reflux disease with esophagitis, without bleeding
CPT/HCPCS: 36415; 80048; 82607; 82728; 82746; 83540; 84439; 84443; 84466; 84481; 85025; 85045

== ENCOUNTER → 2021-02-16 | Outpatient (CLI) | payer MEDICARE, OTHER ==
[2021-02-16 13:00] LABS: BASOPHILS # (AUTO) 0.1 10^3/uL (0.0-0.1); BASOPHILS % (AUTO) 0.8 %; EOSINOPHILS # (AUTO) 0.2 10^3/uL (0.0-0.7); EOSINOPHILS % (AUTO) 3.5 %; HCT - HEMATOCRIT 37.4 % (37.0-47.0); HGB - HEMOGLOBIN 11.1 g/dL (12.0-16.0); LYMPHOCYTES # (AUTO) 2.1 10^3/uL (1.5-3.5); LYMPHOCYTES % (AUTO) 32.4 %; MEAN CORPUSCULAR HEMOGLOBIN 26.9 pg (27.0-31.0); MEAN CORPUSCULAR HGB CONC 29.7 g/dL (32.0-36.0); MEAN CORPUSCULAR VOLUME 90.8 fL (81.0-99.0); MEAN PLATELET VOLUME 9.8 fL (7.9-10.8); MONOCYTES # (AUTO) 0.8 10^3/uL (0.0-1.0); MONOCYTES % (AUTO) 12.4 %; NEUTROPHILS # (AUTO) 3.2 10^3/uL (1.5-6.6); NEUTROPHILS % (AUTO) 50.7 %; PLT - PLATELET COUNT 268 10^3/uL (130-450); RED BLOOD COUNT 4.12 10^6/uL (4.20-5.40); RED CELL DISTRIBUTION WIDTH 17.2 % (12.0-15.0); WHITE BLOOD COUNT 6.4 x10^3/uL (4.8-10.8)
[2021-02-16 13:26] LABS: % IRON SATURATION 14 % (20-50); IRON 64 ug/dL (28-170); TOTAL IRON BINDING CAPACITY 459 ug/dL (250-450); TRANSFERRIN 328 mg/dL (192-382)
== END ==
LOC: LAB 08:00
PROVIDERS: ATTEND Family Medicine
DX: D50.9 Iron deficiency anemia, unspecified (principal)
CPT/HCPCS: 36415; 82728; 83540; 84466; 85025

== ENCOUNTER 2021-03-28 08:00 | Outpatient (CLI) | payer MEDICARE, OTHER ==
[2021-03-28 18:03] LABS: BASOPHILS # (AUTO) 0.1 10^3/uL (0.0-0.1); BASOPHILS % (AUTO) 0.9 %; EOSINOPHILS # (AUTO) 0.2 10^3/uL (0.0-0.7); EOSINOPHILS % (AUTO) 3.5 %; HCT - HEMATOCRIT 38.2 % (37.0-47.0); HGB - HEMOGLOBIN 11.3 g/dL (12.0-16.0); LYMPHOCYTES # (AUTO) 1.8 10^3/uL (1.5-3.5); MEAN CORPUSCULAR HEMOGLOBIN 28.3 pg (27.0-31.0); MEAN CORPUSCULAR HGB CONC 29.6 g/dL (32.0-36.0); MEAN CORPUSCULAR VOLUME 95.5 fL (81.0-99.0); MEAN PLATELET VOLUME 10.8 fL (7.9-10.8); MONOCYTES # (AUTO) 0.7 10^3/uL (0.0-1.0); MONOCYTES % (AUTO) 10.5 %; PLT - PLATELET COUNT 233 10^3/uL (130-450); RED CELL DISTRIBUTION WIDTH 19.1 % (12.0-15.0); RETICULOCYTE COUNT % (AUTO) 1.49 % (0.5-2.3); WHITE BLOOD COUNT 6.8 x10^3/uL (4.8-10.8)
[2021-03-28 18:30] LABS: % IRON SATURATION 18 % (20-50); IRON 58 ug/dL (28-170); TOTAL IRON BINDING CAPACITY 315 ug/dL (250-450); TRANSFERRIN 225 mg/dL (192-382)
== END 2021-03-28 23:59 | disposition home or self-care (01) ==
LOC: LAB.WCP 08:00
PROVIDERS: ATTEND Family Medicine
DX: D50.9 Iron deficiency anemia, unspecified (principal)
CPT/HCPCS: 36415; 82728; 83540; 84466; 85025; 85045

== ENCOUNTER 2021-09-27 09:45 | Outpatient (CLI) | payer MEDICARE, OTHER ==
[2021-09-27 11:47] LABS: BASOPHILS # (AUTO) 0.1 10^3/uL (0.0-0.1); EOSINOPHILS # (AUTO) 0.4 10^3/uL (0.0-0.7); EOSINOPHILS % (AUTO) 6.7 %; HCT - HEMATOCRIT 38.9 % (37.0-47.0); HGB - HEMOGLOBIN 12.1 g/dL (12.0-16.0); LYMPHOCYTES # (AUTO) 1.6 10^3/uL (1.5-3.5); LYMPHOCYTES % (AUTO) 27.8 %; MEAN CORPUSCULAR HEMOGLOBIN 29.9 pg (27.0-31.0); MEAN CORPUSCULAR HGB CONC 31.1 g/dL (32.0-36.0); MEAN PLATELET VOLUME 10.5 fL (7.9-10.8); MONOCYTES # (AUTO) 0.6 10^3/uL (0.0-1.0); MONOCYTES % (AUTO) 9.7 %; NEUTROPHILS # (AUTO) 3.2 10^3/uL (1.5-6.6); NEUTROPHILS % (AUTO) 54.5 %; PLT - PLATELET COUNT 232 10^3/uL (130-450); RED BLOOD COUNT 4.05 10^6/uL (4.20-5.40); RED CELL DISTRIBUTION WIDTH 14.6 % (12.0-15.0); WHITE BLOOD COUNT 5.9 x10^3/uL (4.8-10.8)
[2021-09-27 12:07] LABS: ALBUMIN 4.2 g/dL (3.2-5.5); ALBUMIN/GLOBULIN RATIO 1.2 (1.0-2.2); BILIRUBIN,TOTAL 0.8 mg/dL (0.2-1.0); CALCIUM 9.4 mg/dL (8.5-10.3); POTASSIUM 4.2 mmol/L (3.5-5.0); TOTAL PROTEIN 7.6 g/dL (6.7-8.2)
[2021-09-27 12:13] LABS: THYROID STIMULATING HORMONE 2.81 uIU/mL (0.34-5.60)
== END 2021-09-27 09:46 | disposition home or self-care (01) ==
LOC: LAB.N 09:45
PROVIDERS: ATTEND Family Medicine
DX: I10 Essential (primary) hypertension (principal); D50.9 Iron deficiency anemia, unspecified; I48.91 Unspecified atrial fibrillation; E87.1 Hypo-osmolality and hyponatremia; E03.9 Hypothyroidism, unspecified; I25.10 Atherosclerotic heart disease of native coronary artery without angina pectoris; E78.5 Hyperlipidemia, unspecified
CPT/HCPCS: 36415; 80053; 84443; 85025

== ENCOUNTER 2022-04-04 10:13 | Outpatient (CLI) | payer MEDICARE, OTHER ==
[2022-04-04 12:11] LABS: BASOPHILS # (AUTO) 0.1 10^3/uL (0.0-0.1); BASOPHILS % (AUTO) 1.2 %; EOSINOPHILS # (AUTO) 0.3 10^3/uL (0.0-0.7); EOSINOPHILS % (AUTO) 4.4 %; HCT - HEMATOCRIT 38.6 % (37.0-47.0); HGB - HEMOGLOBIN 11.8 g/dL (12.0-16.0); LYMPHOCYTES # (AUTO) 1.8 10^3/uL (1.5-3.5); LYMPHOCYTES % (AUTO) 30.1 %; MEAN CORPUSCULAR HEMOGLOBIN 29.4 pg (27.0-31.0); MEAN CORPUSCULAR HGB CONC 30.6 g/dL (32.0-36.0); MEAN CORPUSCULAR VOLUME 96.3 fL (81.0-99.0); MEAN PLATELET VOLUME 10.9 fL (7.9-10.8); MONOCYTES # (AUTO) 0.6 10^3/uL (0.0-1.0); MONOCYTES % (AUTO) 9.7 %; NEUTROPHILS # (AUTO) 3.2 10^3/uL (1.5-6.6); NEUTROPHILS % (AUTO) 54.4 %; PLT - PLATELET COUNT 269 10^3/uL (130-450); RED BLOOD COUNT 4.01 10^6/uL (4.20-5.40); RED CELL DISTRIBUTION WIDTH 15.6 % (12.0-15.0)
[2022-04-04 12:39] LABS: ALBUMIN 3.8 g/dL (3.2-5.5); BILIRUBIN,TOTAL 0.6 mg/dL (0.2-1.0); CALCIUM 9.3 mg/dL (8.5-10.3); CREATININE 0.9 mg/dL (0.4-1.0); POTASSIUM 4.3 mmol/L (3.5-5.0); TOTAL PROTEIN 7.5 g/dL (6.7-8.2)
[2022-04-04 12:41] LABS: THYROID STIMULATING HORMONE 2.13 uIU/mL (0.34-5.60)
== END 2022-04-04 10:14 | disposition home or self-care (01) ==
LOC: LAB.N 10:13
PROVIDERS: ATTEND Family Medicine
DX: I95.9 Hypotension, unspecified (principal); Z13.29 Encounter for screening for other suspected endocrine disorder
CPT/HCPCS: 36415; 80053; 84443; 85025

== ENCOUNTER 2022-10-03 10:56 | Outpatient (CLI) | payer MEDICARE, OTHER ==
[2022-10-03 17:58] LABS: BASOPHILS # (AUTO) 0.1 10^3/uL (0.0-0.1); BASOPHILS % (AUTO) 1.1 %; EOSINOPHILS # (AUTO) 0.4 10^3/uL (0.0-0.7); EOSINOPHILS % (AUTO) 5.3 %; HCT - HEMATOCRIT 39.2 % (37.0-47.0); HGB - HEMOGLOBIN 11.9 g/dL (12.0-16.0); LYMPHOCYTES # (AUTO) 2.2 10^3/uL (1.5-3.5); LYMPHOCYTES % (AUTO) 32.3 %; MEAN CORPUSCULAR HEMOGLOBIN 29.6 pg (27.0-31.0); MEAN CORPUSCULAR HGB CONC 30.4 g/dL (32.0-36.0); MEAN CORPUSCULAR VOLUME 97.5 fL (81.0-99.0); MEAN PLATELET VOLUME 11.1 fL (7.9-10.8); MONOCYTES # (AUTO) 0.7 10^3/uL (0.0-1.0); MONOCYTES % (AUTO) 9.8 %; NEUTROPHILS # (AUTO) 3.4 10^3/uL (1.5-6.6); NEUTROPHILS % (AUTO) 51.3 %; PLT - PLATELET COUNT 252 10^3/uL (130-450); RED BLOOD COUNT 4.02 10^6/uL (4.20-5.40); WHITE BLOOD COUNT 6.7 x10^3/uL (4.8-10.8)
[2022-10-03 18:14] LABS: ALBUMIN 3.8 g/dL (3.2-5.5); ALBUMIN/GLOBULIN RATIO 1.1 (1.0-2.2); ALKALINE PHOSPHATASE 56 IU/L (42-121); ALT ALANINE AMINOTRANSFERASE 16 IU/L (10-60); AST ASPARTATE AMINOTRANSFERASE 21 IU/L (10-42); BILIRUBIN,TOTAL 0.7 mg/dL (0.2-1.0); BUN - BLOOD UREA NITROGEN 21 mg/dL (6-20); CALCIUM 9.2 mg/dL (8.5-10.3); CARBON DIOXIDE - CO2 28 mmol/L (21-32); CHLORIDE 103 mmol/L (101-111); CHOL/HDL RATIO 3.2 (<4.4); CHOLESTEROL 178 mg/dL; GFR - MDRD 52 (>89); GLUCOSE 109 mg/dL (70-100); HDL CHOLESTEROL 55 mg/dL; LDL CHOLESTEROL,CALCULATED 92 mg/dL; LDL/HDL RATIO 1.7 (<4.4); SODIUM 138 mmol/L (135-145); TOTAL PROTEIN 7.3 g/dL (6.7-8.2); TRIGLYCERIDES 155 mg/dL; VLDL CHOLESTEROL 31 mg/dL
[2022-10-03 18:23] LABS: THYROID STIMULATING HORMONE 11.35 uIU/mL (0.34-5.60)
[2022-10-03 19:01] LABS: FREE T4 (FREE THYROXINE) 0.9 ng/dL (0.58-1.64)
[2022-10-03 20:10] LABS: ESTIMATED AVERAGE GLUCOSE 137 mg/dL (70-100); HEMOGLOBIN A1c% 6.4 % (4.27-6.07)
== END 2022-10-03 10:57 | disposition home or self-care (01) ==
LOC: LAB.N 10:56
PROVIDERS: ATTEND Family Medicine
DX: E78.5 Hyperlipidemia, unspecified (principal); R73.9 Hyperglycemia, unspecified; D50.9 Iron deficiency anemia, unspecified; I48.91 Unspecified atrial fibrillation; G47.9 Sleep disorder, unspecified; E03.9 Hypothyroidism, unspecified; I25.10 Atherosclerotic heart disease of native coronary artery without angina pectoris
CPT/HCPCS: 36415; 80053; 80061; 83036; 83721; 84439; 84443; 85025

== ENCOUNTER 2022-11-19 12:14 | Outpatient (CLI) | payer MEDICARE, OTHER ==
--- NOTE | 2022-11-19 13:01 | XRAY Report ---
PROCEDURE: Hip w/Pelvis 2-3V LT INDICATIONS: PAIN IN LEFT HIP TECHNIQUE: AP pelvis with lateral view(s) of the left hip(s). COMPARISON: None. FINDINGS: Bones: No fractures or dislocations. No suspicious bony lesions. Soft tissues: No suspicious soft tissue calcifications or masses. IMPRESSION: No acute bony abnormality. Reviewed by: Arnold Rosales on 11/19/2022 1:00 PM PDT Approved by: Arnold Rosales on 11/19/2022 1:00 PM PDT Station ID: [id number]
--- NOTE | 2022-11-19 14:50 | XRAY Report ---
PROCEDURE: Lumbar Spine 2 View INDICATIONS: LOW BACK PAIN, UNSPECIFIED TECHNIQUE: 2 views of the lumbar spine were acquired. COMPARISON: None. FINDINGS: Bones: 5 [id number] vertebrae are present. Grade 1 anterolisthesis of L4 on L5. Moderate disc h eight loss at all levels. Facet arthrosis L4-S1. Soft tissues: Overlying bowel gas pattern is normal. No suspicious soft tissue calcifications. IMPRESSION: Grade 1 anterolisthesis of L4 on L5 secondary to facet arthrosis. Moderate disc height loss and lower lumbar facet arthrosis. Reviewed by: Arnold Rosales on 11/19/2022 2:49 PM PDT Approved by: Arnold Rosales on 11/19/2022 2:49 PM PDT Station ID: [id number]
== END 2022-11-19 12:15 | disposition home or self-care (01) ==
LOC: DI 12:14
PROVIDERS: ATTEND Nurse Practitioner
DX: M25.552 Pain in left hip (principal); M43.16 Spondylolisthesis, lumbar region; M47.816 Spondylosis without myelopathy or radiculopathy, lumbar region; M51.36 Other intervertebral disc degeneration, lumbar region

== ENCOUNTER 2023-04-02 10:52 | Outpatient (CLI) | payer MEDICARE, OTHER ==
[2023-04-02 18:27] LABS: THYROID STIMULATING HORMONE 0.62 uIU/mL (0.34-5.60)
== END 2023-04-02 10:53 | disposition home or self-care (01) ==
LOC: LAB.N 10:52
PROVIDERS: ATTEND Family Medicine
DX: E03.9 Hypothyroidism, unspecified (principal)
CPT/HCPCS: 36415; 84439; 84443; 84481

== ENCOUNTER 2023-05-21 10:52 | Outpatient (CLI) | payer MEDICARE, OTHER ==
--- NOTE | 2023-05-21 11:52 | XRAY Report ---
PROCEDURE: Cervical Spine 4-5V INDICATIONS: CERVICALGIA, HEADACHE TECHNIQUE: 4 views of the cervical spine acquired. COMPARISON: None. FINDINGS: Bones: No fractures or dislocations to the C7 level. Oblique images demonstrate no definite bony fo raminal stenoses, noting limitations of plain radiography. 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 Soft tissues: No prevertebral soft tissue swelling. IMPRESSION: Severe DJD of the C-spine. No acute findings. Reviewed by: Anthony Ovalle MD on 05/21/2023 11:50 AM PST Approved by: Anthony Ovalle MD on 05/21/2023 11:50 AM PST Station ID: [id number]
== END 2023-05-21 10:53 | disposition home or self-care (01) ==
LOC: DI 10:52
PROVIDERS: ATTEND Family Medicine
DX: M47.812 Spondylosis without myelopathy or radiculopathy, cervical region (principal)

== ENCOUNTER 2023-07-23 11:26 | Outpatient (CLI) | payer MEDICARE, OTHER ==
[2023-07-23 11:48] LABS: BASOPHILS # (AUTO) 0.1 10^3/uL (0.0-0.1); BASOPHILS % (AUTO) 0.9 %; EOSINOPHILS # (AUTO) 0.5 10^3/uL (0.0-0.7); EOSINOPHILS % (AUTO) 7.6 %; HCT - HEMATOCRIT 38.4 % (37.0-47.0); HGB - HEMOGLOBIN 11.4 g/dL (12.0-16.0); LYMPHOCYTES % (AUTO) 29.1 %; MEAN CORPUSCULAR HEMOGLOBIN 28.3 pg (27.0-31.0); MEAN CORPUSCULAR HGB CONC 29.7 g/dL (32.0-36.0); MEAN CORPUSCULAR VOLUME 95.3 fL (81.0-99.0); MONOCYTES # (AUTO) 0.7 10^3/uL (0.0-1.0); MONOCYTES % (AUTO) 9.7 %; NEUTROPHILS # (AUTO) 3.5 10^3/uL (1.5-6.6); NEUTROPHILS % (AUTO) 52.6 %; PLT - PLATELET COUNT 285 10^3/uL (130-450); RED BLOOD COUNT 4.03 10^6/uL (4.20-5.40); RED CELL DISTRIBUTION WIDTH 15.4 % (12.0-15.0); WHITE BLOOD COUNT 6.7 x10^3/uL (4.8-10.8)
[2023-07-23 12:12] LABS: THYROID STIMULATING HORMONE 1.66 uIU/mL (0.34-5.60)
[2023-07-23 12:18] LABS: ALBUMIN 4.3 g/dL (3.2-5.5); ALBUMIN/GLOBULIN RATIO 1.3 (1.0-2.2); ALKALINE PHOSPHATASE 66 IU/L (42-121); ALT ALANINE AMINOTRANSFERASE 12 IU/L (10-60); AST ASPARTATE AMINOTRANSFERASE 17 IU/L (10-42); BILIRUBIN,TOTAL 0.6 mg/dL (0.2-1.0); BUN - BLOOD UREA NITROGEN 15 mg/dL (6-20); CALCIUM 9.4 mg/dL (8.5-10.3); CARBON DIOXIDE - CO2 27 mmol/L (21-32); CHLORIDE 106 mmol/L (101-111); CHOL/HDL RATIO 3.2 (<4.4); CHOLESTEROL 158 mg/dL; GFR - MDRD 52 (>89); GLUCOSE 111 mg/dL (74-104); HDL CHOLESTEROL 49 mg/dL; LDL CHOLESTEROL,CALCULATED 74 mg/dL; LDL/HDL RATIO 1.5 (<4.4); POTASSIUM 4.2 mmol/L (3.5-4.5); SODIUM 140 mmol/L (135-145); TOTAL PROTEIN 7.5 g/dL (6.4-8.9); TRIGLYCERIDES 177 mg/dL (48-352); VLDL CHOLESTEROL 35 mg/dL
[2023-07-23 12:46] LABS: ESTIMATED AVERAGE GLUCOSE 140 mg/dL (70-100); HEMOGLOBIN A1c% 6.5 % (4.27-6.07)
== END 2023-07-23 11:27 | disposition home or self-care (01) ==
LOC: LAB 11:26
PROVIDERS: ATTEND Family Medicine
DX: I10 Essential (primary) hypertension (principal); M54.2 Cervicalgia; E03.9 Hypothyroidism, unspecified; I48.91 Unspecified atrial fibrillation; R73.9 Hyperglycemia, unspecified; H91.90 Unspecified hearing loss, unspecified ear; G47.00 Insomnia, unspecified; E78.5 Hyperlipidemia, unspecified; I25.119 Atherosclerotic heart disease of native coronary artery with unspecified angina pectoris
CPT/HCPCS: 36415; 80053; 80061; 83036; 83721; 84443; 85025

== ENCOUNTER 2023-12-06 14:00 | Outpatient (CLI) | payer MEDICARE, OTHER | END 2023-12-06 14:15 | disposition home or self-care (01) | LOC: LAB.N 14:00 | PROVIDERS: ATTEND Physician Assistant Medical | DX: R30.0 Dysuria (principal) | CPT/HCPCS: 87086 ==

== ENCOUNTER 2023-12-10 05:10 | Emergency (ER) | payer MEDICARE, OTHER ==
--- NOTE | 2023-12-10 05:18 | ED Physician Documentation ---
PD HPI HEENT - Stated complaint Stated Complaint: BLOODY NOSE - History obtained from History obtained from: Patient - Additional information Additional information: 88-year-old female with history of Xarelto use presents for nosebleed since approximately 11:00 last night. Patient reports nosebleeds in the past, last nosebleed was 4 months ago. Patient tried to use [id number] methods at home but was unsuccessful in stopping the bleeding, so she is here today for evaluation. She states that since she has arrived to the emergency department the bleeding has slowed down a little bit, but she still feels some bleeding happening Review of Systems Constitutional: denies: Fever, Chills Eyes: denies: Loss of vision, Decreased vision, Photophobia Ears: denies: Loss of hearing, Ear pain, Drainage/discharge Nose: reports: Epistaxis. denies: Rhinorrhea / runny nose, Foreign Body : denies: Dysuria, Frequency, Hesitancy PD PAST MEDICAL HISTORY - Past Medical History Cardiovascular: Hypertension, High cholesterol, Angina, Other Respiratory: None Endocrine/Autoimmune: HyPOthyroidism GI: GERD, C.difficile : None HEENT: Chronic vision loss, Chronic hearing loss Psych: Depression Musculoskeletal: Other Derm: None - Past Surgical History Past Surgical History: Yes General: Appendectomy, Colonoscopy Ortho: Other /DATA MANAGEMENT [employer]OCIATE: Hysterectomy Cardiovascular: Coronary stent - Present Medications Home Medications: Ambulatory Orders Medication Instructions Recorded Confirmed Isosorbide Mononitrate ER [Imdur] 60 mg PO DAILY 09/01/13 02/16/21 Levothyroxine Sodium [Synthroid] 75 mcg PO DAILY 09/01/13 02/16/21 Metoprolol Tartrate [Lopressor] 75 mg PO DAILY 09/01/13 02/16/21 Nitroglycerin [Nitrostat] 0.4 mg SL ONCE 09/01/13 02/16/21 lisinopriL [Lisinopril] 10 mg PO QPM 09/01/13 02/16/21 Omeprazole 20 mg PO DAILY 08/05/20 02/16/21 Zolpidem [Ambien] 5 mg PO DAILY 08/05/20 02/16/21 amLODIPine [Norvasc] 10 mg PO DAILY #30 tablet 08/05/20 02/16/21 Cetirizine HCl [Zyrtec] 1 tab PO DAILY 02/16/21 02/16/21 Multivitamin/Iron/Folic Acid 1 tab PO DAILY 02/16/21 02/16/21 [Centrum Women Tablet] Rivaroxaban [Xarelto] 1 tab PO DAILY 02/16/21 02/16/21 Rosuvastatin Calcium [Crestor] 1 tab PO DAILY 02/16/21 02/16/21 - Allergies Allergies/Adverse Reactions: Allergies Allergy/AdvReac Type Severity Reaction Status Date / Time hydrocodone bitartrate * Allergy Mild Hives Verified 12/10/23 05:16 [From Vicodin] - Social History Does the pt smoke?: No Smoking Status: Never smoker Does the pt drink ETOH?: Yes Does the pt have substance abuse?: No - Immunizations Immunizations are current?: Yes PD ED PE NORMAL - Vitals Vital signs reviewed: Yes - General General: Alert and oriented X 3, No acute distress, Well developed/nourished - HEENT HEENT: PERRL, EOMI, Ears normal, Moist mucous membranes, Pharynx benign, Other (R nare erythematous, scant amount of blood present) - Respiratory Respiratory: No respiratory distress - Derm Derm: Normal color, Warm and dry, No rash - Neuro Neuro: Alert and oriented X 3, blow torch burner 2-12 intact, No motor deficit, Normal speech Results - Vitals Vitals: Vital Signs - 24 hr 12/10/23 05:17 Temperature 37 C Heart Rate 80 Respiratory 16 Rate Blood Pressure 151/91 H O2 Saturation 98 Oxygen O2 Source Room air - Labs Labs: Laboratory Tests 12/10/23 06:05 Hgb 11.0 L Hct 35.6 L PD Medical Decision Making - ED course Complexity details: reviewed old records, reviewed results, re-evaluated patient, considered differential, d/w patient, d/w family ED course: Nosebleed since last night. Patient hemodynamically stable, nosebleed already seems to have mostly resolved by time of arrival to the emergency department. Afrin applied to nostril and nose clamps applied. Patient monitored in the emergency department, no further bleeding even after removal of nose clamps. Patient given bottle of Afrin to take home if she notices bleeding again in the future. Patient is very concerned about her hemoglobin, stating that on a previous nosebleed she had to have an iron transfusion. I explained that based on patient's vital signs and the low bleeding that she has had this morning she is at extremely low risk for needing transfusion or blood products, but offered to check a hemoglobin level for peace of mind. Patient requested to have hemoglobin checked. Hemoglobin 11.0, patient's baseline is around 11-11.5 going as far back as 2020. Patient given the bottle of Afrin and nose clamps and instructed on how to properly apply clamps to stop bleeding. Discharged home in stable condition. Departure - Departure Disposition: Home, Self Care Clinical Impression: Epistaxis Condition: Stable Instructions: Nosebleed Comments: Your hemoglobin today was 11, which is where your hemoglobin has been for the last 2 years approximately. If you notice bleeding in the future use 2 squirts of Afrin in the bleeding nostril and use the nose clamp over the fleshy, soft part of your nose for at least 15 to 20 minutes. You may also apply an ice pack over your nose to help stop bleeding. Use the Afrin no more than 3 days in a row otherwise it may cause "dependence". I do recommend that you continue using Xarelto in the meantime. Follow-up as needed with your primary care doctor.
[2023-12-10] MEDS: OXYMETAZOLINE HCL 100 SPRAYS BOTTLE NAS STA (05:27)
[2023-12-10 06:11] LABS: HCT - HEMATOCRIT 35.6 % (37.0-47.0)
[2023-12-10 06:51] VITALS: BP 166/74; O2SAT 96
== END 2023-12-10 06:47 | disposition home or self-care (01) ==
LOC: ED 05:10
DX: R04.0 Epistaxis (principal); I10 Essential (primary) hypertension; E78.00 Pure hypercholesterolemia, unspecified; E03.9 Hypothyroidism, unspecified; Z79.01 Long term (current) use of anticoagulants; Z79.899 Other long term (current) drug therapy
CPT/HCPCS: 36415; 85014; 85018; 99283; A9270

== ENCOUNTER 2024-01-26 08:37 | Outpatient (CLI) | payer MEDICARE, OTHER ==
[2024-01-26 09:11] LABS: BASOPHILS # (AUTO) 0.1 10^3/uL (0.0-0.1); BASOPHILS % (AUTO) 0.9 %; EOSINOPHILS # (AUTO) 0.3 10^3/uL (0.0-0.7); EOSINOPHILS % (AUTO) 5.4 %; HCT - HEMATOCRIT 38.2 % (37.0-47.0); HGB - HEMOGLOBIN 11.6 g/dL (12.0-16.0); LYMPHOCYTES # (AUTO) 1.8 10^3/uL (1.5-3.5); LYMPHOCYTES % (AUTO) 31.3 %; MEAN CORPUSCULAR HEMOGLOBIN 29.1 pg (27.0-31.0); MEAN CORPUSCULAR HGB CONC 30.4 g/dL (32.0-36.0); MEAN CORPUSCULAR VOLUME 95.7 fL (81.0-99.0); MEAN PLATELET VOLUME 10.2 fL (7.9-10.8); MONOCYTES # (AUTO) 0.6 10^3/uL (0.0-1.0); MONOCYTES % (AUTO) 9.8 %; NEUTROPHILS # (AUTO) 2.9 10^3/uL (1.5-6.6); NEUTROPHILS % (AUTO) 52.4 %; PLT - PLATELET COUNT 226 10^3/uL (130-450); RED BLOOD COUNT 3.99 10^6/uL (4.20-5.40); RED CELL DISTRIBUTION WIDTH 15.4 % (12.0-15.0); WHITE BLOOD COUNT 5.6 x10^3/uL (4.8-10.8)
[2024-01-26 09:28] LABS: ALBUMIN 4.2 g/dL (3.2-5.5); ALBUMIN/GLOBULIN RATIO 1.4 (1.0-2.2); BILIRUBIN,TOTAL 0.6 mg/dL (0.2-1.0); CALCIUM 9.5 mg/dL (8.5-10.3); POTASSIUM 4.3 mmol/L (3.5-4.5); TOTAL PROTEIN 7.1 g/dL (6.4-8.9)
[2024-01-26 11:26] LABS: ESTIMATED AVERAGE GLUCOSE 140 mg/dL (70-100); HEMOGLOBIN A1c% 6.5 % (4.27-6.07)
== END 2024-01-26 08:38 | disposition home or self-care (01) ==
LOC: LAB 08:37
PROVIDERS: ATTEND Family Medicine
DX: I10 Essential (primary) hypertension (principal); E11.9 Type 2 diabetes mellitus without complications; I48.91 Unspecified atrial fibrillation; E87.1 Hypo-osmolality and hyponatremia
CPT/HCPCS: 36415; 80053; 83036; 85025